=== PATIENT | female | born 1975 | race Caucasian/White ===

== ENCOUNTER 2022-02-12 12:04 | Emergency (ER) | payer BC, SELFPAY ==
[2022-02-12 12:39] VITALS: BP 123/88; PULSE 83; RESP 18; TEMP 36.7; O2SAT 100
--- NOTE | 2022-02-12 13:34 | ED.URI ---
HPI - URI/Sore Throat General Chief Complaint: Upper Respiratory Infection Stated Complaint: Sore Throat,Body Aches Time Seen by Provider: 02/12/22 12:06 Source: patient Mode of arrival: ambulatory Limitations: no limitations History of Present Illness HPI Narrative: 46-year-old female presents to [facility] with complaints of sore throat, fever, body aches and chills since yesterday. Patient has been taking [id number] Tylenol and ibuprofen with minimal relief. Patient does work at [employer]. Patient denies recent travel. Patient denies cough, congestion, runny nose, nausea, vomiting, diarrhea, shortness of breath or wheezing. MD elicited complaint: fever and sore throat Onset (ago): day(s) (1) Able to tolerate fluids by mouth: Yes Exacerbating factors: swallowing Associated symptoms: fever and chills Treatments prior to arrival: acetaminophen and ibuprofen Related Data Allergies Allergy/AdvReac Type Severity Reaction Status Date / Time No Known Allergies Allergy Verified 02/12/22 13:08 Review of Systems Constitutional: Constitutional: Reports chills, Reports fatigue, Reports fever(s) and Denies weakness ENT: Denies dizziness and Reports sore throat Cardiovascular: Cardiovascular: Denies chest pain Respiratory: Respiratory: Denies cough, Denies dyspnea and Denies wheezing Gastrointestinal: Gastrointestinal: Denies abdominal pain, Denies diarrhea, Denies nausea and Denies vomiting Integumentary/Breasts: Skin/Breast: Denies rash PMFSH Social History Social History (Updated 02/12/22 @ 13:36 by Irene Chong, CHRISTINE) Smoking status: Never smoker Comments At time of signature, I agree with nursing past medical, surgical, social and family history. There is no relevant family history pertinent to the presenting complaint. Exam Const: General: healthy appearing Nutritional Appearance: well nourished Orientation/consciousness: patient oriented x3 Limitations: no limitations HENMT: Ears: external ears normal and TM's normal bilaterally Face/Nose/Sinus: Normal external nose present and Normal nares present Face and sinus: normal facial exam Mouth: Yes Normal oral and palatal mucosa present, Yes lip normal and Yes moist mucous membranes Other: Moderate erythema noted to posterior pharynx. 1-2+ swelling and erythema noted to bilateral tonsils. No peritonsillar abscess noted Neck: Neck: normal visual inspection Resp: Effort & Inspection: normal respiratory effort and not labored Auscultation: clear to auscultation bilaterally, no crackles, no rales, no rhonchi and no wheezes Cardio: Rate: regular rate Rhythm: regular rhythm Heart sounds: no murmurs Skin: General skin exam: normal color Rashes: no rashes Wounds: no wounds Neuro: General: patient oriented x3 Speech: normal speech Gait exam (Neuro): Normal gait present Psych: Affect: normal affect Course Course Level of Care: Express Care Visit Vital Signs Vital signs: Vital Signs Temperature 36.7 C 02/12/22 12:39 Pulse Rate 83 02/12/22 12:39 Respiratory Rate 18 02/12/22 12:39 Blood Pressure 123/88 02/12/22 12:39 Pulse Oximetry 100 02/12/22 12:39 Oxygen Delivery Room Air 02/12/22 12:39 Temperature 36.7 C 02/12/22 12:39 Pulse Rate 83 02/12/22 12:39 Respiratory Rate 18 02/12/22 12:39 Blood Pressure 123/88 02/12/22 12:39 Pulse Oximetry 100 02/12/22 12:39 Oxygen Delivery Room Air 02/12/22 12:39 MDM - URI/Sore Throat MDM Narrative Medical decision making narrative: Patient agrees to alternate Motrin and Tylenol as needed. Patient agrees to take antibiotic as prescribed. Patient understands that she is contagious until she has been on antibiotic for 24 hours. Patient agrees to proceed to the emergency room if symptoms worsen Differential Diagnosis Differential diagnosis: Likely upper respiratory infection, otitis media and sinusitis Lab Data Labs: Strep Screen
== END 2022-02-12 13:41 | disposition home or self-care (01) ==
PROVIDERS: Emergency Provider Nurse Practitioner Family; PCP Family Medicine
DX: J02.0 Streptococcal pharyngitis (principal); Z86.16 Personal history of COVID-19
CPT/HCPCS: 87804; 87880; 99203; G0463

== ENCOUNTER 2023-10-14 14:42 | Emergency (ER) | payer OTHER, SELFPAY ==
--- NOTE | 2023-10-14 14:45 | ED.URI ---
HPI - URI/Sore Throat General Chief Complaint: Upper Respiratory Infection Stated Complaint: Fever/Sore Throat/BodyAches Time Seen by Provider: 10/14/23 14:45 Source: patient Mode of arrival: ambulatory Limitations: no limitations History of Present Illness HPI Narrative: Dnia is a 48-year-old female patient presenting to the clinic today with complaints of fever, sore throat, and body aches x1 day. She reports symptoms started last night. Does not know how high her fever was that she did not check it but she states that she took Tylenol and Motrin and has been breaking her fevers. MD elicited complaint: sore throat and nasal congestion Related Data Allergies Allergy/AdvReac Type Severity Reaction Status Date / Time No Known Allergies Allergy Verified 10/14/23 14:45 Review of Systems Review of Systems: Pertinent positives per HPI. Patient denies any rash, headache, visual changes, dizziness, cough, shortness of breath, chest pain, palpitations, nausea, vomiting, diarrhea, constipation, abdominal pain, or any urinary issues. PMFSH Social History Social History Smoking status: Never smoker Comments At the time of my signature, I reviewed and agree with the nursing past medical, surgical, social, and family history. There is no relevant family history pertinent to the patient complaint. Exam Narrative: General: Well-developed, well nourished, in no apparent distress Head: Normocephalic, atraumatic Eyes: Pupils equally round and reactive to light bilaterally, EOM intact, sclera and conjunctive clear, no discharge, lids normal Ears: TMs intact and clear, ear canals clear, no drainage, grossly hearing normal. Nose: Nares patent, no discharge, no inflammation, no sinus tenderness. Mouth: Oral pharynx red with left tonsillar swelling without lesions or masses, good dentition, MMM. Neck: Supple, trachea midline, enlargement of left anterior cervical nodes, no thyroid masses or goiter palpable. Cardio: Regular rate and rhythm, s1 and s2 normal, no murmur appreciated. Resp: Clear to auscultation bilaterally, no rhonchi, rales, wheezing or rubs Course Course Emergency Course: Portions of this record may have been created with voice recognition software. Level of Care: Express Care Visit Vital Signs Vital signs: Vital signs reviewed MDM - URI/Sore Throat MDM Narrative Medical decision making narrative: At the time of visit patient is resting comfortably on the exam table. Patient appears to be nontoxic. Labs: Strep test was performed and test is positive Plan: I suspect patient has strep pharyngitis. Prescription for amoxicillin was sent to the pharmacy. Supportive measures were discussed with the patient and they voiced understanding discharge instructions and agrees to treatment plan. Return precautions reviewed Differential Diagnosis Differential diagnosis: Likely upper respiratory infection, otitis media, sinusitis, viral infection, bronchitis, influenza, pharyngitis and other (COVID) Discharge Plan Discharge Clinical Impression: Acute streptococcal pharyngitis Patient Disposition: Home, Self-Care Condition: Stable Instructions: Antibiotic Form, Strep Throat (ED) Additional Instructions: Strep test was positive in the clinic today Take prescription medications only as prescribed-amoxicillin Increase fluids and stay well hydrated Tylenol/motrin for pain/fever Cepacol spray, cough drops, throat lozenges, warm tea with honey/lemon, gargle salt water to soothe throat Go to the ED if you develop a worsening in your condition- high fever not controlled by Tylenol or Motrin, dehydration, weakness, lethargy, shortness of breath, or chest pain. Follow up with your PCP in 3-5 days if symptoms persist. Prescriptions: New amoxicillin 875 mg tablet 875 mg PO Q12H 10 Days Qty: 20 0RF Follow-up/Referrals: [facility]
[2023-10-14 14:51] VITALS: BP 107/66; PULSE 87; RESP 16; TEMP 37.1; O2SAT 100
== END 2023-10-14 15:07 | disposition home or self-care (01) ==
PROVIDERS: Emergency Provider Nurse Practitioner Family; PCP Family Medicine
DX: J02.0 Streptococcal pharyngitis (principal); Z86.16 Personal history of COVID-19
CPT/HCPCS: 87880; 99213; G0463